=== PATIENT | male | born 1950 | race Caucasian/White ===

== ENCOUNTER → 2016-10-24 | Outpatient (CLI) | payer OTHER ==
--- NOTE | 2016-11-01 12:55 | RSPPFT ---
DATE OF PROCEDURE: 10/24/16 COMMENTS: Spirometry shows FVC of 2.5 at 55% of predicted, FEV1 of 1.8 at 58%, FEV1/FVC ratio is normal. Flow is decreased at FEF 25, FEF 50, FEF 75 and FEF 25-75. There is no response after bronchodilator treatment. Lung volumes show residual volume is normal. TLC is normal. Diffusion capacity is normal. Flow volume loop indicates terminal airways obstruction. IMPRESSION: 1. Mild small airways obstructive lung disease. 2. No response after bronchodilator treatment. 3. Lung volumes are normal. 4. Normal diffusion capacity.
== END ==
LOC: HRSP 12:56
DX: R06.00 Dyspnea, unspecified (principal); R49.0 Dysphonia
CPT/HCPCS: 94060; 94726; 94729